=== PATIENT | female | born 1965 | race Caucasian/White ===

== ENCOUNTER 2019-09-10 10:04 | Emergency (ER) | payer OTHER, BC, SELFPAY ==
[2019-09-10 10:11] VITALS: BP 141/82; PULSE 73; RESP 16; TEMP 36.1; O2SAT 99
--- NOTE | 2019-09-10 10:12 | ED.URI ---
HPI - URI/Sore Throat General Chief Complaint: Upper Respiratory Infection Stated Complaint: ASTHMA/COUGH Time Seen by Provider: 09/10/19 10:15 Source: patient and RN notes reviewed Mode of arrival: ambulatory Limitations: no limitations History of Present Illness HPI Narrative: 45-year-old female who presents to [facility] care with complaints of continued dry cough for at least 3 weeks, headache and sinus pressure and recent diarrhea, states temp of 99 Fahrenheit on Sunday. Patient has been seen twice at [facility] initially on 20 August she was given Augmentin oral antibiotic for sinus infection which she states she did not complete all doses within the 10 days had 2 doses left so took them last week. Patient was again seen on the was given an inhaler of Wixela inhub and started on Singulair which she has not routinely taken either. Patient concerned since she still has this cough and her lungs feel tight. Patient has clear lungs on auscultation with no wheezing or accessory muscle use, SAO2 99% on room air. MD elicited complaint: cough, rhinorrhea and nasal congestion Pertinent past history: asthma and seasonal allergies Onset (ago): week(s) (3) Consistency: intermittent Severity: mild Pain scale (0-10): 2 Description of mucous: clear Able to tolerate fluids by mouth: Yes Exacerbating factors: exertion and deep breaths Relieving factors: nothing Associated symptoms: headache, cough and other (tightness in chest with breathing) Treatments prior to arrival: other (sporatic use of inhaler and singulair) Related Data Home Medications Medication Instructions Recorded Confirmed sertraline 25 mg PO DAILY 04/25/19 04/25/19 albuterol sulfate [ProAir HFA] INHALATION 09/10/19 fluticasone propion-salmeterol INHALATION 09/10/19 [Wixela Inhub] montelukast mg 09/10/19 Allergies Allergy/AdvReac Type Severity Reaction Status Date / Time No Known Allergies Allergy Verified 11/11/15 14:25 Review of Systems Review of Systems: Narrative: CONSTITUTIONAL: Denies fever, chills, or sweats. EYES: Denies visual changes, redness, or discharge. ENT:Positive rhinorrhea, congestion, no sore throat, or otalgia. CARDIOVASCULAR: Denies chest pain, palpitations, or edema. RESPIRATORY: positive cough no acute dyspnea SAO2 99% on room air. GASTROINTESTINAL: Denies abdominal pain, nausea, vomiting, episodes of diarrhea past 2 days total X3. GENITOURINARY: Denies dysuria or hematuria. SKIN: Denies rash or itching. MUSCULOSKELETAL: Denies back pain, joint pain, or myalgia. NEUROLOGIC: positive frontal headache, no numbness, or weakness. PSYCHIATRIC: history anxiety or depression. All systems reviewed & are unremarkable except as noted in HPI and below PMFSH Past Medical History Medical History (Updated 09/10/19 @ 17:37 by Melba Croft NP) Asthma Back pain Depression Ear infection History of sinus problem Pneumonia Sleep apnea Surgical History Surgical History (Updated 09/10/19 @ 17:38 by Melba Croft NP) H/O ventral hernia repair History of dilatation and curettage History of laparoscopy Hx of appendectomy Hx of tonsillectomy Previous section Social History Social History (Updated 09/10/19 @ 17:39 by Melba Croft NP) Smoking status: Never smoker Alcohol intake: never Gender identity (if verbalized by the patient): Female Comments At time of signature, agree with nursing past medical, surgical, social and family history. There is no relevant family history pertinent to the presenting complaint Exam Narrative: Exam Narrative: GENERAL: Well-appearing, well-nourished, and in no acute distress. HEAD: Normocephalic, atraumatic. EYES: PERRLA and EOMI. ENT: Nares mild redness, clear rhinorrhea no epistaxis. Mucous membranes moist.TM's normal with good light reflex, throat pink with no lesions or exudate, tonsils not swollen, NECK: Supple.no lymphadenopathy CHEST: Clear mildly decrease remberto
== END 2019-09-10 10:42 | disposition home or self-care (01) ==
PROVIDERS: Emergency Provider Registered Nurse
DX: J06.9 Acute upper respiratory infection, unspecified (principal); R19.7 Diarrhea, unspecified; J45.909 Unspecified asthma, uncomplicated; F32.9 Major depressive disorder, single episode, unspecified; G47.30 Sleep apnea, unspecified
CPT/HCPCS: 99213; G0463

== ENCOUNTER 2019-12-17 08:42 | Outpatient (CLI) | payer OTHER, BC, SELFPAY ==
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
== END 2019-12-17 08:43 | disposition home or self-care (01) ==
PROVIDERS: PCP Physician Assistant; Visit Provider Physician Assistant
DX: M47.816 Spondylosis without myelopathy or radiculopathy, lumbar region (principal); M47.814 Spondylosis without myelopathy or radiculopathy, thoracic region; M47.812 Spondylosis without myelopathy or radiculopathy, cervical region; R51 Headache; D32.0 Benign neoplasm of cerebral meninges
CPT/HCPCS: 70450; 72141; 72146; 72148

== ENCOUNTER 2019-12-17 11:27 | Emergency (ER) | payer OTHER, BC, SELFPAY ==
[2019-12-17 11:53] VITALS: BP 136/82; PULSE 85; RESP 18; TEMP 37.3; O2SAT 100
--- NOTE | 2019-12-17 12:18 | ECG_ITS ---
Measurements Intervals [place] Rate: 93 P: 51 CO: 143 QRS: 8 QRSD: 86 T: 17 QT: 374 QTc: 467 Interpretive Statements SINUS RHYTHM NORMAL ECG Electronically Signed On 12-17-2019 14:58:22 CDT by Ramesh Mclain D.O.
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
[2019-12-17] MEDS: SODIUM CHLORIDE 0.9% IV 1,000 ML 999 ML IV CONT (12:32)
[2019-12-17] MEDS: METOCLOPRAMIDE HCL INJ 10 MG/2 ML VIAL IV PUSH (12:33)
[2019-12-17] MEDS: KETOROLAC 30 MG/ML VIAL (*BKC) IV PUSH (12:33)
[2019-12-17 12:41] LABS: Basophils Percent Auto 0.5 % (0.2-1.2); Eosinophils Absolute Auto 0.1 K/mm3 (0-0.3); Eosinophils Percent Auto 1.2 % (0-4.4); Hematocrit 37.4 % (37.0-47.0); Immature Granulocyte Absolute 0.03 K/mm3 (0.00-0.031); Immature Granulocyte Percent A 0.4 % (0-0.5); Lymphocytes Absolute Auto 1.55 K/mm3 (0.9-3.2); Lymphocytes Percent Auto 18.6 % (18.3-44.2); Mean Corpuscular HGB Conc 29.4 g/dl (32-36); Mean Corpuscular Hemoglobin 22.1 pg (26-34); Mean Corpuscular Volume 75.1 fl (80-100); Mean Platelet Volume 10.9 fl (7.4-10.4); Monocytes Absolute Auto 0.6 K/mm3 (0.1-0.6); Monocytes Percent Auto 7.3 % (2.6-8.5); Platelet Count Result 209 k/mm3 (150-375); Red Blood Count 4.98 M/mm3 (4.2-5.4); White Blood Count 8.3 K/mm3 (4.5-10.0)
[2019-12-17 12:53] LABS: Ovalocytes 1+ (NORMAL); Platelet Estimate Adequate (Adequate); Poikilocytosis 1+ (NORMAL)
[2019-12-17 12:59] LABS: Alanine Aminotransferase 19 U/L (4-35); Albumin Level 4.5 g/dL (3.5-5.1); Alkaline Phosphatase 102 U/L (38-126); Aspartate Amino Transferase 32 U/L (14-36); Bilirubin,Total 0.8 mg/dL (0.2-1.3); Blood Urea Nitrogen 9 mg/dL (7-17); Calcium 9.1 mg/dL (8.4-10.2); Carbon Dioxide 27 mmol/L (22-30); Chloride 105 mmol/L (98-107); Estimated CRCL calculation 109 ml/min; Estimated Glomerular Filt Rate > 60; Glucose 106 mg/dL (65-105); Potassium 3.9 mmol/L (3.4-5.0); Sodium 139 mmol/L (137-145)
[2019-12-17 13:52] VITALS: BP 138/79; PULSE 95
[2019-12-17 13:53] VITALS: BP 135/87; BP 136/81; PULSE 95; PULSE 97
[2019-12-17 14:16] LABS: Add Urine Microscopic? NO; Appearance Urine Clear (Clear); Bilirubin Urine Negative (Negative); Blood Urine Negative (Negative); Color Urine Straw (Yellow); Glucose Urine UA Negative (Negative); Ketones Urine Negative (Negative); Leukocyte Esterase Ur Negative LEU/UL (Negative); Nitrate Urine Negative (Negative); Protein Urine Negative (Negative); Specific Grav Ur 1.006 (1.001-1.035); Urobilinogen Urine Negative mg/dL (<2.0)
[2019-12-17 15:27] VITALS: BP 166/90; PULSE 78; RESP 18; O2SAT 99
== END 2019-12-17 15:29 | disposition home or self-care (01) ==
PROVIDERS: Emergency Provider Emergency Medicine; PCP Family Medicine
DX: E86.0 Dehydration (principal); R42 Dizziness and giddiness
CPT/HCPCS: 36415; 80053; 81003; 85025; 93005; 96361; 96374; 96375; 99284; J1885; J2765; J3360; J7030

== ENCOUNTER 2021-01-28 22:17 | Emergency (ER) | payer OTHER, BC, SELFPAY ==
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
[2021-01-28 22:19] VITALS: BP 142/84; PULSE 97; RESP 18; TEMP 37.1; O2SAT 100
[2021-01-28] MEDS: MORPHINE SULFATE (*CRX) 2 MG/ML INJ IV PUSH (22:53)
[2021-01-28] MEDS: ONDANSETRON INJ 4 MG/2 ML VIAL (23:04)
[2021-01-28 23:11] VITALS: O2SAT 100
[2021-01-28 23:17] VITALS: PULSE 97; RESP 19; O2SAT 94
[2021-01-28 23:28] LABS: Alanine Aminotransferase 19 U/L (4-35); Albumin Level 4.2 g/dL (3.5-5.1); Alkaline Phosphatase 116 U/L (38-126); Anion Gap 10 mmol/L (8-16); Aspartate Amino Transferase 23 U/L (14-36); Bilirubin,Total 0.7 mg/dL (0.2-1.3); Blood Urea Nitrogen 7 mg/dL (7-17); Calcium 9.2 mg/dL (8.4-10.2); Carbon Dioxide 21 mmol/L (22-30); Chloride 107 mmol/L (98-107); Estimated CRCL calculation 115 ml/min; Estimated Glomerular Filt Rate > 60; Glucose 120 mg/dL (65-110); INR 0.9; Lipase 59 U/L (23-300); Potassium 3.9 mmol/L (3.4-5.0); Prothrombin Time 12.3 Seconds (11.1-14.7); Sodium 138 mmol/L (137-145)
[2021-01-28 23:29] LABS: Basophils Absolute Auto 0.1 K/mm3 (0.0-0.1); Basophils Percent Auto 0.6 % (0.2-1.2); Eosinophils Absolute Auto 0.1 K/mm3 (0-0.3); Eosinophils Percent Auto 1.3 % (0-4.4); Hematocrit 37.4 % (37.0-47.0); Hemoglobin 10.7 g/dL (12.0-15.0); Immature Granulocyte Absolute 0.04 K/mm3 (0.00-0.031); Immature Granulocyte Percent A 0.4 % (0-0.5); Lymphocytes Absolute Auto 1.68 K/mm3 (0.9-3.2); Lymphocytes Percent Auto 18.7 % (18.3-44.2); Mean Corpuscular HGB Conc 28.6 g/dl (32-36); Mean Corpuscular Hemoglobin 21.7 pg (26-34); Mean Corpuscular Volume 75.7 fl (80-100); Mean Platelet Volume 10.2 fl (7.4-10.4); Monocytes Absolute Auto 0.6 K/mm3 (0.1-0.6); Monocytes Percent Auto 6.7 % (2.6-8.5); Neutrophils Absolute Auto 6.5 K/mm3 (1.3-6.7); Neutrophils Percent Auto 72.3 % (45.5-73.1); Platelet Count Result 230 k/mm3 (150-375); Red Blood Count 4.94 M/mm3 (4.2-5.4)
[2021-01-28 23:30] VITALS: PULSE 96; RESP 32; O2SAT 98
[2021-01-28 23:30] LABS: Hypochromasia 1+ (NORMAL); Platelet Estimate Adequate (Adequate)
[2021-01-29 00:10] VITALS: PULSE 104; RESP 13; O2SAT 99
[2021-01-29 00:11] VITALS: BP 133/92; PULSE 105; RESP 14; O2SAT 99
[2021-01-29 00:15] VITALS: PULSE 101; RESP 18; O2SAT 99
[2021-01-29 00:17] VITALS: BP 126/86; PULSE 101; RESP 17; O2SAT 99
[2021-01-29 00:18] VITALS: PULSE 99; RESP 19; O2SAT 97
[2021-01-29 00:33] VITALS: PULSE 100; RESP 22; O2SAT 99
--- NOTE | 2021-01-29 00:49 | PC.NURSE ---
c-collar removed after verbal order by
== END 2021-01-29 00:41 | disposition home or self-care (01) ==
PROVIDERS: Emergency Provider Emergency Medicine
DX: S16.1XXA Strain of muscle, fascia and tendon at neck level, initial encounter (principal); S29.011A Strain of muscle and tendon of front wall of thorax, initial encounter; S80.12XA Contusion of left lower leg, initial encounter; S80.11XA Contusion of right lower leg, initial encounter; M47.812 Spondylosis without myelopathy or radiculopathy, cervical region; M47.816 Spondylosis without myelopathy or radiculopathy, lumbar region; M47.814 Spondylosis without myelopathy or radiculopathy, thoracic region; M19.071 Primary osteoarthritis, right ankle and foot; M17.0 Bilateral primary osteoarthritis of knee; V89.2XXA Person injured in unspecified motor-vehicle accident, traffic, initial encounter
CPT/HCPCS: 36415; 71260; 72125; 72129; 72132; 73502; 73562; 73590; 73630; 74177; 80053; 83690; 85025; 85610; 85730; 96374; 96375; 99284; J2270; J2405; Q9967